=== PATIENT | female | born 1945 | race Caucasian/White ===

== ENCOUNTER → 2016-09-08 | Outpatient (CLI) | payer MEDICARE, OTHER ==
--- NOTE | 2016-09-08 11:09 | CT ---
EXAMINATION TYPE: CT brain wo con DATE OF EXAM: 09/08/2016 COMPARISON: NONE HISTORY: Headache CT DLP: 927.9 mGycm Automated exposure control for dose reduction was used. FINDINGS: Changes of chronic sinusitis noted. Mild degenerative change. Low density within the right occipital lobe is suggestive of remote focal area of ischemia. IMPRESSION: CHRONIC SINUSITIS. REMOTE SMALL AREA OF ISCHEMIA SUSPECTED WITHIN THE RIGHT OCCIPITAL LOBE. MRI FOLLO W-UP RECOMMENDED..
--- NOTE | 2016-09-11 10:21 | MM ---
Reason for exam: screening (asymptomatic). Last mammogram was performed 5 years and 7 months ago. History: Patient is postmenopausal and is nulliparous. Benign excisional biopsy of the left breast, March 20, 2001. Physical Findings: A clinical breast exam by your physician is recommended on an annual basis and results should be correlated with mammographic findings. MG 3D Screening Mammo W/Cad Bilateral CC and MLO view(s) were taken. Prior study comparison: February 09, 2011, bilateral digital screening mammo w/CAD. January 27, 2010, bilateral digital screening mammogram. There are scattered fibroglandular densities. Finding: There are typically benign calcifications in both breasts. There is a chronic nodularity bilaterally. No significant changes in finding since February 09, 2011 and January 27, 2010. ASSESSMENT: Benign, BI-RAD 2 RECOMMENDATION: Routine screening mammogram of both breasts in 1 year.
== END ==
LOC: RADMAMWWP 10:06
PROVIDERS: ATTEND Family Medicine
DX: Z12.31 Encounter for screening mammogram for malignant neoplasm of breast (principal); H54.7 Unspecified visual loss
CPT/HCPCS: 77063; 70450; G0202